=== PATIENT | male | born 1990 | race Caucasian/White ===

== ENCOUNTER 2018-09-16 00:10 | Inpatient (IN) | payer OTHER ==
[~2018-09-16] VITALS: Ht 180.3 cm; Wt 78.5 kg
[2018-09-16 01:46] LABS: HEMATOCRIT 45.1 % (42.0-52.0); HEMOGLOBIN 15.9 g/dl (13.5-17.5); MEAN CORPUSCULAR HEMOGLOBIN 30.7 pg (27.0-33.0); MEAN CORPUSCULAR HGB CONC 35.3 g/dl (32.0-36.5); MEAN CORPUSCULAR VOLUME 87.1 fl (80.0-96.0); PLATELET COUNT, AUTOMATED 324 10^3/uL (150-450); RED BLOOD COUNT 5.18 10^6/uL (4.30-6.10); WHITE BLOOD COUNT 7.8 10^3/uL (4.0-10.0)
[2018-09-16 02:16] LABS: AMPHETAMINES LEVEL URINE NEGATIVE (NEGATIVE); BARBITURATES URINE NEGATIVE (NEGATIVE); BENZODIAZEPINES URINE NEGATIVE (NEGATIVE); CANNABINOIDS URINE NEGATIVE (NEGATIVE); COCAINE METABOLITE URINE NEGATIVE (NEGATIVE); METHADONE URINE NEGATIVE (NEGATIVE); OPIATES URINE NEGATIVE (NEGATIVE); PHENCYCLIDINE URINE NEGATIVE (NEGATIVE)
[2018-09-16 02:29] LABS: ACETAMINOPHEN LEVEL < 2.0 UG/ML (10.0-30.0); ALBUMIN 4.7 GM/DL (3.2-5.2); ALT/SGPT 29 U/L (12-78); BILIRUBIN,DIRECT 0.2 MG/DL (0.0-0.2); BILIRUBIN,TOTAL 0.4 MG/DL (0.2-1.0); BLOOD UREA NITROGEN 14 MG/DL (7-18); CALCIUM LEVEL 9.1 MG/DL (8.5-10.1); CARBON DIOXIDE LEVEL 27 MEQ/L (21-32); CHLORIDE LEVEL 106 MEQ/L (98-107); CREATININE FOR GFR 0.76 MG/DL (0.70-1.30); GLOMERULAR FILTRATION RATE > 60.0 (>60); GLUCOSE, FASTING 94 MG/DL (70-100); POTASSIUM SERUM 3.9 MEQ/L (3.5-5.1); SALICYLATE LEVEL < 1.7 MG/DL (5.0-30.0); SODIUM LEVEL 144 MEQ/L (136-145); TOTAL PROTEIN 8.1 GM/DL (6.4-8.2)
[2018-09-16] MEDS ORDERED: ONDANSETRON 4 MG ORAL DISINTEGRATING TAB (Q0162 PER 1MG) PO ONE (03:15)
[2018-09-16] MEDS ORDERED: ACETAMINOPHEN TAB 650MG DOSE (2X325MG) PO ONE (03:15)
[2018-09-16] MEDS ORDERED: NICOTINE 21MG/24HR 1 EA TRANSDERMAL TD SCH (09:00)
[2018-09-16] MEDS ORDERED: ACETAMINOPHEN TAB 650MG DOSE (2X325MG) PO PRN (11:00)
[2018-09-16] MEDS ORDERED: MAALOX 30 ML SUSP *UDC PO PRN (11:00)
[2018-09-16] MEDS ORDERED: traZODone 50 MG TAB PO PRN (11:00)
[2018-09-16] MEDS ORDERED: MOM 30ML SUSPENSION UDC PO PRN (11:00)
[2018-09-16 11:17] VITALS: BP 156/97
[2018-09-16] MEDS ORDERED: hydrOXYzine 25 MG TAB PO PRN (19:45)
--- NOTE | 2018-09-16 22:05 | MHHPEPDOC ---
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 The patient was brought in detoxified as he had presented with BAL of 1.8 and subsequently was admitted to the inpatient unit. When the patient was met with he described that he had significant stressors in his life with his suffering severely from OCD, it's currently not being treated psychiatrically. He reports that she has generally been able to compensate but that he in addition to taking care of their young [id number] son, house, horses, dogs and the patient's that he has to attend to her specific rituals that can take several hours a day. He reports that he had become increasingly unable to sleep, more depressed, hopeless, fatigued and has recently lost his job as he has not been able to perform sufficiently well due to the aforementioned stressors. He reports more anxiety and worry that has progressed to the point of him drinking, however, he reports that in general he does not drink. He reports his has attempted to get treatment, but at times has difficulty recognizing the severity of her problem. Review Of Systems Depression: The patient reports the above-mentioned symptoms, however, in the past, he has had similar symptoms under similar psychosocial stressors in college. Anxiety: As above. Domenica: The patient denies any episodes of euphoria/dysphoria associated with decreased need for sleep, hedonism, talkatively or impulsivity lasting longer than 5 days. Psychotic: The patient denies any experiences of auditory or visual parmar ucinations. They deny any episodes of paranoia or delusional thinking in the past Trauma: The patient denies any traumatic events associated with nightmares or intrusive thoughts. Borderline: The patient screens negative for borderline personality at this junction. Past Psychiatric History The patient reports having one inpatient admission due to similar adjustment problems and college several years ago, but has had no follow up afterwards. He was started on a vague medication that he cannot remember. Denies any suicide attempts. Allergies Please see below. Family Psychiatric History Reports parents used alcohol significantly. Social History The patient is an account currently, does not have his full CPA. 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 He reports they've had a recent 21-vsatb-hle son and that they also have a large plethora of horses and dogs. He reports that he has had little problems with psychiatry in the past and has generally been able to attend to things. His is a [employer] structural engineering drafting officer, who is currently the breadwinner for the family as he has recently lost his job. Denies any significant legal problems. Denies any trauma or abuse in the past or present. Substance Abuse History Reports some mild cannabis use at times. Medical History Patient has no significant past medical history. Mental Status Examination General: Well dressed with good hygiene Speech: Spontaneous and fluid Thought processes: Linear and logical MSK: Smooth and coordinated gait, no signs of tremors or involuntary orofacial movements Thought content: Future orientated Abstract reasoning, and computation: Intact Description of associations: Intact Description of abnormal or psychotic thoughts: Denies any suicidal or homicidal ideation. Denies any auditory or visual hallucinations. Does not appear to be responding to internal stimuli. Does not appear to be endorsing any bizarre or paranoid ideation. Judgment: fair Insight: fair Orientation: Alert and orientated 3 Cognition: Grossly normal Recent and remote memory: Intact Attention span and concentration: Intact Fund of knowledge: Adequate Mood: "okay" Affect: Euthymic with a full range Diagnoses Adjustment disorder with disruption of mood and conduct. Assessment and Plan The patient a 28-year-old man with a sparse history of psychiatric interactions, presents after significant stressors related to his who is suffering from OCD, provoked him to drink and subsequently make statements leading to his admission. He is likely suffering from adjustment problem as it appears consistent with his previous episode in college, where he was reportedly hospitalized at [facility]. He has been recently very successful, however, it appears that his 's untreated OCD is causing a significant amount of distress likely leading to his symptoms at this time. Disposition The patient will need a further inpatient admission in order to treat his depression, titrate medications and come up with a safe discharge plan. Problem List 1. Risk for suicide. 2. Ineffective coping. 3. Depression. Initial Treatment Plan 1. Patient was admitted on a 9.39 legal status. 2. Complete history was obtained. 3. With patients permission, family will be contacted and database will be expanded. 4. Patients medication regimen will be reviewed and changed accordingly. 5. Patient will be provided with protected environment. 6. Patient will be treated with individual, group, and milieu therapies. 7. Patient will receive supportive psych-education. 8. Discharge planning will commence immediately. 9. Outpatient follow-up treatment will be strongly recommended. 10. The initial treatment plan will focus initially on: starting Wellbutrin 150 mg daily extended-release. Discussed risks, benefits and potential side effects with patient as well as its use and adjustment disorder. 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 Estimated Length Of Stay 3 days. Time Spent 45 minutes. Wednesday Vital Signs Vital Signs Date Time Temp Pulse Resp B/P (MAP) Pulse Ox O2 Delivery O2 Flow Rate FiO2 09/16/18 17:35 98.0 87 16 09/16/18 11:17 156/97 (116) 09/16/18 10:59 97 Room Air Laboratory Data 24H Labs Laboratory Tests 2 09/16/18 01:29: Nucleated Red Blood Cells % (auto) 0.0, Anion Gap 11, Glomerular Filtration Rate > 60.0, Calcium Level 9.1, Aspartate Amino Transf (AST/SGOT) 19, Alanine Aminotransferase (ALT/SGPT) 29, Alkaline Phosphatase 54, Total Bilirubin 0.4, Direct Bilirubin 0.2, Total Protein 8.1, Albumin 4.7, Albumin/Globulin Ratio 1.38, Thyroid Stimulating Hormone (TSH) 2.630, Salicylates Level < 1.7L, Urine Amphetamines Screen NEGATIVE, Urine Benzodiazepines Screen NEGATIVE, Urine Opiates Screen NEGATIVE, Urine Methadone Screen NEGATIVE, Acetaminophen Level < 2.0L, Urine Barbiturates Screen NEGATIVE, Urine Phencyclidine Screen NEGATIVE, Urine Cocaine Metabolite Screen NEGATIVE, Urine Cannabinoids Screen NEGATIVE, Ethyl Alcohol Level 0.180H CBC/BMP Laboratory Tests 09/16/18 01:29 Red Blood Count 5.18, Mean Corpuscular Volume 87.1, Mean Corpuscular Hemoglobin 30.7, Mean Corpuscular Hemoglobin Concent 35.3, Red Cell Distribution Width 11.9 Medications No Active Prescriptions or Reported Meds Allergies Coded Allergies: No Known Allergies (Unverified , 09/16/18) KIM TELLO DO Sep 16, 2018 22:05
[2018-09-17 06:51] VITALS: BP 105/57
[2018-09-17] MEDS: buPROPion **XL** TABLET 150MG (WELLBUTRIN XL) PO SCH (08:27)
--- NOTE | 2018-09-17 10:20 | MHIPNPDOC ---
[facility] Progress Note Progress Note DATE OF SERVICE: 09/17/18 HISTORY: Per Dr. 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 The patient was brought in detoxified as he had presented with abl 1.8 and subsequently was admitted to the inpatient unit new paragraph on the patient was met with you describe that he had significant stressors in his life with his suffering severely from OCD. There's currently not being treated psychiatrically he reports that she has generally been able to compensate but that he in addition to taking care of their young 10 month old son house horses dogs and The patient's that he has to attend to her specific rituals that can take several hours a day. He reports that he had become increasingly unable to sleep more depressed hopeless fatigued and has recently lost his job as he has not been able to perform sufficiently. Well due to the aforementioned stressors. He reports more anxiety and worry that is progressed to the point of him drinking how reports that in general. He does not drink he reports his has attempted to get treatment, but at times has difficulty recognizing the severity of her problem." VITAL SIGNS: See below. NEW TEST RESULTS: See below. CURRENT MEDICATIONS: See below. MENTAL STATUS EXAMINATION: General: Well dressed with good hygiene Speech: Spontaneous and fluid Thought processes: Linear and logical MSK: Smooth and coordinated gait, no signs of tremors or involuntary orofacial movements Thought content: Future orientated Abstract reasoning, and computation: Intact Description of associations: Intact Description of abnormal or psychotic thoughts: Denies any suicidal or homicidal ideation. Denies any auditory or visual hallucinations. Does not appear to be responding to internal stimuli. Does not appear to be endorsing any bizarre or paranoid ideation. Judgment: fair Insight: fair Orientation: Alert and orientated 3 Cognition: Grossly normal Recent and remote memory: Intact Attention span and concentration: Intact Fund of knowledge: Adequate Mood: "okay" Affect: Euthymic with a full range DIAGNOSES: adjustment disorder with disruption of mood and conduct ASSESSMENT::Pt seen and states that his mood is ok. Just took wellburin xl for the first time this am and well see if beneficial to his mood. States he slept well last night. He is attending groups and finding them helpful. He denies SI/HI, hallucinations, delusions. Pt feels safe here. MANAGEMENT PLAN: continue Dr. Wang's plan. Wellbutrin XL 150mg daily TIME SPENT: 30 minutes. Vital Signs Vital Signs Date Time Temp Pulse Resp B/P (MAP) Pulse Ox O2 Delivery O2 Flow Rate FiO2 09/17/18 06:51 97.9 58 12 105/57 (73) 09/16/18 10:59 97 Room Air Current Medications Current Medications Medications (Trade) Dose Ordered Sig/Hammad Route PRN Reason Start Time Stop Time Status Last Admin Dose Admin Acetaminophen (Tylenol Tab) 650 mg Q6HP PRN PO HEADACHE or DISCOMFORT 09/16/18 11:00 09/16/18 12:11 Al Hydrox/Mg Hydrox/Simethicone (Mylanta) 30 ml Q4HP PRN PO HEARTBURN/INDIGESTION 09/16/18 11:00 Bupropion HCl (Wellbutrin Xl) 150 mg DAILY PO 09/17/18 09:00 09/17/18 08:27 Home Med (Med Rec Complete!) ASDIRECTED XX 09/16/18 10:30 09/16/18 10:31 DC Hydroxyzine HCl (Atarax) 25 mg Q4HP PRN PO ANXIETY/AGITATION 09/16/18 19:45 Magnesium Hydroxide (Milk Of Magnesia) 30 ml DAILYPRN PRN PO CONSTIPATION 09/16/18 11:00 Nicotine (Nicoderm Cq 21mg) 1 patch DAILY TD 09/16/18 09:00 Cancel Trazodone HCl (Desyrel) 50 mg QHSP PRN PO INSOMNIA 09/16/18 11:00 Allergies Coded Allergies: No Known Allergies (Unverified , 09/16/18) EDSON BURGOS DO Sep 17, 2018 10:20 am
[2018-09-17 18:30] VITALS: BP 164/85
[2018-09-18 07:00] VITALS: BP 92/51
[2018-09-18] MEDS: buPROPion **XL** TABLET 150MG (WELLBUTRIN XL) PO SCH (08:20)
--- NOTE | 2018-09-18 09:19 | MHIPNPDOC ---
[facility] Progress Note Progress Note DATE OF SERVICE: 09/18/18 HISTORY:Per Dr. 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 The patient was brought in detoxified as he had presented with abl 1.8 and subsequently was admitted to the inpatient unit new paragraph on the patient was met with you describe that he had significant stressors in his life with his suffering severely from OCD. There's currently not being treated psychiatrically he reports that she has generally been able to compensate but that he in addition to taking care of their young 10 month old son house horses dogs and The patient's that he has to attend to her specific rituals that can take several hours a day. He reports that he had become increasingly unable to sleep more depressed hopeless fatigued and has recently lost his job as he has not been able to perform sufficiently. Well due to the aforementioned stressors. He reports more anxiety and worry that is progressed to the point of him drinking how reports that in general. He does not drink he reports his has attempted to get treatment, but at times has difficulty recognizing the severity of her problem." VITAL SIGNS: See below. NEW TEST RESULTS: See below. CURRENT MEDICATIONS: See below. MENTAL STATUS EXAMINATION: General: Well dressed with good hygiene Speech: Spontaneous and fluid Thought processes: Linear and logical MSK: Smooth and coordinated gait, no signs of tremors or involuntary orofacial movements Thought content: Future orientated Abstract reasoning, and computation: Intact Description of associations: Intact Description of abnormal or psychotic thoughts: Denies any suicidal or homicidal ideation. Denies any auditory or visual hallucinations. Does not appear to be responding to internal stimuli. Does not appear to be endorsing any bizarre or paranoid ideation. Judgment: fair Insight: fair Orientation: Alert and orientated 3 Cognition: Grossly normal Recent and remote memory: Intact Attention span and concentration: Intact Fund of knowledge: Adequate Mood: "good" Affect: Euthymic with a full range DIAGNOSES: adjustment disorder with disruption of mood and conduct ASSESSMENT::Pt seen and states that his mood is "good" today and he's getting ready to start yoga this morning. States he's finding wellbutrin xl beneficial to his mood and tolerating it well. States he slept well last night. He is attending groups and finding them helpful. He denies SI/HI, hallucinations, delusions. Pt feels safe here. MANAGEMENT PLAN: continue Dr. Wang's plan. Wellbutrin XL 150mg daily TIME SPENT: 30 minutes. Vital Signs Vital Signs Date Time Temp Pulse Resp B/P (MAP) Pulse Ox O2 Delivery O2 Flow Rate FiO2 09/18/18 07:00 98.3 62 12 92/51 (65) 09/16/18 10:59 97 Room Air Current Medications Current Medications Medications (Trade) Dose Ordered Sig/Hammad Route PRN Reason Start Time Stop Time Status Last Admin Dose Admin Acetaminophen (Tylenol Tab) 650 mg Q6HP PRN PO HEADACHE or DISCOMFORT 09/16/18 11:00 09/16/18 12:11 Al Hydrox/Mg Hydrox/Simethicone (Mylanta) 30 ml Q4HP PRN PO HEARTBURN/INDIGESTION 09/16/18 11:00 Bupropion HCl (Wellbutrin Xl) 150 mg DAILY PO 09/17/18 09:00 09/18/18 08:20 Home Med (Med Rec Complete!) ASDIRECTED XX 09/16/18 10:30 09/16/18 10:31 DC Hydroxyzine HCl (Atarax) 25 mg Q4HP PRN PO ANXIETY/AGITATION 09/16/18 19:45 09/17/18 20:26 Magnesium Hydroxide (Milk Of Magnesia) 30 ml DAILYPRN PRN PO CONSTIPATION 09/16/18 11:00 Nicotine (Nicoderm Cq 21mg) 1 patch DAILY TD 09/16/18 09:00 Cancel Trazodone HCl (Desyrel) 50 mg QHSP PRN PO INSOMNIA 09/16/18 11:00 Allergies Coded Allergies: No Known Allergies (Unverified , 09/16/18) EDSON BURGOS DO Sep 18, 2018 9:19 am
--- NOTE | 2018-09-18 16:39 | HPEPDOC ---
[facility] Medical History & Physical Date of Admission Sep 16, 2018 Date of Service: Sep 16, 2018 History and Physical CHIEF COMPLAINT: [suicidal thoughts] HISTORY OF PRESENT ILLNESS: This is a 28 yo male with no significant pmhx who admitted to psych for suicidal thoughts. Patient said, he has been under a lot stress at home. His has severe OCD that has become very overbearing for him. He said this was affecting his life that he wasn't able to focus at work and do his job properly so he was leg go. This made his life more miserable so he drinking a lot of alcohol to the point where he started having suicidal thoughts. He denied headache, blurry vision, fever, chills, sob, numbness, tingling , nausea or vomiting. He did complain of some chest discomfort, kindness of substernal, "not painful, just a weird sensation that he feels when he is anxious- similar but not quite the same thing." PAST MEDICAL HISTORY: none PAST SURGICAL HISTORY: none SOCIAL HISTORY: Marital status: [y]. Resides in: [with , son and dog] Children: [9 month old son] Employment: [recently got fired] Tobacco use:[none] ETOH: [yes] Illicit drug use: [no] Tattoos done unprofessionally: [no]. IV drug use: [no] FAMILY HISTORY: noncontributory ALLERGIES: Please see below. REVIEW OF SYSTEMS: All 10 point ros negative except for whats stated in hpi HOME MEDICATIONS: Please see below. PHYSICAL EXAMINATION: VITAL SIGNS: Temperature , pulse , respiratory rate , blood pressure , pulse oximetry % on room air. GENERAL APPEARANCE: [NAD, normal body habitus]. HEENT: [normocephalic, PERRLA, no lympadenopathy]. CARDIOVASCULAR: [no chest wall tenderness, normal s1//s2, no MRG]. LUNGS: [LCTAB, no wheezes]. ABDOMEN: [soft, NT//ND, +bs]. MUSCULOSKELETAL: [FROM, no weakness]. EXTREMITIES: [no swelling, or tenderness]. NEUROLOGICAL: [AOAX3, no focal deficit]. PSYCHIATRIC: [cooperative, normal mood and affect]. LABORATORY DATA: See below. ASSESSMENT: Depressive disorder mgt per psych etoh use monitor for withdrawal symptoms mgt per psych counseled on risk of etoh use chest discomfort possibly pvc or palpitations -pt said psych attending said he will do an ekg for him - i agree full code, from home Vital Signs Vital Signs Date Time Temp Pulse Resp B/P (MAP) Pulse Ox O2 Delivery O2 Flow Rate FiO2 09/16/18 17:35 98.0 87 16 09/16/18 11:17 156/97 (116) 09/16/18 10:59 97 Room Air Laboratory Data Labs 24H Laboratory Tests 2 09/16/18 01:29: Nucleated Red Blood Cells % (auto) 0.0, Anion Gap 11, Glomerular Filtration Rate > 60.0, Calcium Level 9.1, Aspartate Amino Transf (AST/SGOT) 19, Alanine Aminotransferase (ALT/SGPT) 29, Alkaline Phosphatase 54, Total Bilirubin 0.4, Direct Bilirubin 0.2, Total Protein 8.1, Albumin 4.7, Albumin/Globulin Ratio 1.38, Thyroid Stimulating Hormone (TSH) 2.630, Salicylates Level < 1.7L, Urine Amphetamines Screen NEGATIVE, Urine Benzodiazepines Screen NEGATIVE, Urine Opiates Screen NEGATIVE, Urine Methadone Screen NEGATIVE, Acetaminophen Level < 2.0L, Urine Barbiturates Screen NEGATIVE, Urine Phencyclidine Screen NEGATIVE, Urine Cocaine Metabolite Screen NEGATIVE, Urine Cannabinoids Screen NEGATIVE, Ethyl Alcohol Level 0.180H CBC/BMP Laboratory Tests 09/16/18 01:29 Red Blood Count 5.18, Mean Corpuscular Volume 87.1, Mean Corpuscular Hemoglobin 30.7, Mean Corpuscular Hemoglobin Concent 35.3, Red Cell Distribution Width 11.9 Home Medications No Active Prescriptions or Reported Meds Allergies Coded Allergies: No Known Allergies (Unverified , 09/16/18) A-FIB/CHADSVASC A-FIB History Current/History of A-Fib/PAF?: No Current PO Anticoag Therapy: No Age/Risk Factor Scoring CHADSVASC: CHADSVASC Response (Comments) Value Age Risk Factor Age < 65 years old 0 Gender Risk Factor Male 0 Hx of CHF No 0 Hx of HTN No 0 Hx of Stroke/TIA/or VTE No 0 Hx of Diabetes No 0 Hx of Vascular Disease No 0 Total 0 Treatment Treatment ordered: NONE Reason Anticoagulant not given: Not indicated/[id number] MARIE NEVAREZ MD Sep 16, 2018 19:12
[2018-09-18 18:33] VITALS: BP 149/89
[2018-09-19 07:00] VITALS: BP 122/59
[2018-09-19] MEDS: buPROPion **XL** TABLET 150MG (WELLBUTRIN XL) PO SCH (08:16)
[2018-09-19] MEDS ORDERED: BUPR150T3 PO (10:00)
--- NOTE | 2018-09-19 10:51 | MHDSPDOC ---
[facility] Discharge Summary Discharge Summary DATE OF ADMISSION: Sep 16, 2018 at 10:46 DATE OF DISCHARGE: 09/19/18 Date of Service: 09/19/2018 Diagnoses Adjustment disorder with disruption of mood and conduct. 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 The patient was brought in detoxified as he had presented with BAL of 1.8 and subsequently was admitted to the inpatient unit. When the patient was met with he described that he had significant stressors in his life with his suffering severely from OCD, it's currently not being treated psychiatrically. He reports that she has generally been able to compensate but that he in addition to taking care of their young [id number] son, house, horses, dogs and the patient's that he has to attend to her specific rituals that can take several hours a day. He reports that he had become increasingly unable to sleep, more depressed, hopeless, fatigued and has recently lost his job as he has not been able to perform sufficiently well due to the aforementioned stressors. He reports more anxiety and worry that has progressed to the point of him drinking, however, he reports that in general he does not drink. He reports his has attempted to get treatment, but at times has difficulty recognizing the severity of her problem. Consultants Involved Hospitalist/PCP screening Treatment and Progress On The Unit The patient was admitted to the unit and subsequently started on Wellbutrin 150 mg daily. He had positive results and had endorsed no suicidal or homicidal ideation and attended groups with a fairly euthymic affect. The patient was observed for several days and was noted to have improvement in his depression. He subsequently requested discharge and no longer met involuntary criteria on the Wednesday after the weekend and elected against a further voluntary admission on the unit. The patient was able to attend to all of his needs and demonstrate no concerning behavior to staff. Discharge Assessment A 28-year-old man with a history of adjustment problems in the past who presents in the context of significant psychosocial stressors as well as intoxication wit h alcohol that appeared to produce his statements. He does not appear to use alcohol consistently and thus would not at this time meet criteria for an alcohol use disorder, however, it did appear to be a precipitating factor in his admission as the suicidal thoughts quickly resolved after his intoxication had resolved as well. He did well with a low dose of Wellbutrin, but was primarily understood to be an adjustment disorder. We recommended that his additionally seek treatment as her illness is a strong stressor for him. Mental Status Examination General: Well dressed with good hygiene Speech: Spontaneous and fluid Thought processes: Linear and logical MSK: Smooth and coordinated gait, no signs of tremors or involuntary orofacial movements Thought content: Future orientated Abstract reasoning, and computation: Intact Description of associations: Intact Description of abnormal or psychotic thoughts: Denies any suicidal or homicidal ideation. Denies any auditory or visual hallucinations. Does not appear to be responding to internal stimuli. Does not appear to be endorsing any bizarre or paranoid ideation. Judgment: fair Insight: fair Orientation: Alert and orientated 3 Cognition: Grossly normal Recent and remote memory: Intact Attention span and concentration: Intact Fund of knowledge: Adequate Mood: "okay" Affect: Euthymic with a full range Follow Up The social work team worked during the predischarge meeting in order to evaluate for further issues of lethality address them fully before discharge. They worked on safety planning with the patient's family members in order to ensure that the patient will have a safe and effective discharge. Time Spent The amount of time spent in the coordination of care for this patient was approximately 30 minutes. Wednesday Vital Signs/I&Os Vital Signs Date Time Temp Pulse Resp B/P (MAP) Pulse Ox O2 Delivery O2 Flow Rate FiO2 09/19/18 07:00 98.0 54 12 122/59 (80) 09/16/18 10:59 97 Room Air Medications Scheduled Bupropion Hcl (Bupropion Xl) 150 Mg Tab.er.24h, 150 MG PO DAILY for mood for 7 Days, #7 Allergies Coded Allergies: No Known Allergies (Unverified , 09/16/18) KIM TELLO DO Sep 19, 2018 10:51
== END 2018-09-19 11:48 | disposition home or self-care (01) | DRG 882 ==
LOC: M ED 00:10 → M ED INP 10:46 → M PSY 11:11
PROVIDERS: ADMIT Psychiatry & Neurology Psychiatry; ATTEND Psychiatry & Neurology Addiction Medicine
DX: F43.25 Adjustment disorder with mixed disturbance of emotions and conduct (principal)